=== PATIENT | female | born 1975 | race Caucasian/White ===

== ENCOUNTER 2016-06-14 15:50 | Emergency (ER) | payer BC, OTHER ==
[2016-06-14 15:56] VITALS: TEMP 98.8; BMI 25.5
[2016-06-14] MEDS ORDERED: METOCLOPRAMIDE 10 MG TAB PO ONE (15:59)
[2016-06-14] MEDS ORDERED: DIPHENHYDRAMINE 25 MG CAP PO ONE (15:59)
[2016-06-14] MEDS ORDERED: DEXAMETHASONE PF 10 MG/1 ML VIAL IM ONE (15:59)
[2016-06-14] MEDS ORDERED: KETOROLAC TROMETHAMINE 60 MG/2 ML SDV IM ONE (16:00)
--- NOTE | 2016-06-14 16:05 | EDPRACDOC ---
- General Information Chief Complaint: Headache Stated Complaint: MIGRAINE BUTLER Time Seen by Provider: 06/14/16 15:59 Information Source: Patient Mode Of Arrival: Car Home Medications: Home Medications Nadolol 40 mg PO DAILY 06/14/16 Ondansetron [Zofran Odt] 4 mg PO Q6H PRN #20 tab.rapdis 06/14/16 Oxycodone HCl/Acetaminophen [Percocet 5-325 mg Tablet] 1 tab PO Q4-6H PRN #20 tab 06/14/16 Allergies/Adverse Reactions: Allergies Allergy/AdvReac Type Severity Reaction Status Date / Time No Known Allergies Allergy Verified 06/14/16 15:56 - History of Present Illness Onset: tuesday morning HPI: PT PRESENTS WITH PERSISTENT MIGRAINE THAT BEGAN TUESDAY. STATES SHE HAS TAKEN HER MEDICATIONS PRESCRIBED WITHOUT HELP. WENT TO URGENT CARE YESTERDAY AND WAS GIVEN TORADOL AND PHENERGAN AND HAS RELIEF OF THE NAUSEA. STATES THIS IS CONSISTENT WITH HER NORMAL MIGRAINES. Location: Reports: Generalized Pain Quality: Reports: Moderate, Like Previous Headaches Modifying Factors: improves with: Medication, Immobilization Prior work up: Reports: CT Relevant History of: Reports: Known Headache disorder Associated Signs and Symptoms: Denies: Fever/Chills, Stiff Neck ED Past Medical History - History Reviewed Yes Nurses notes reviewed and agree except as marked - Patient Medical History Psychological History: Denies: Depression Systemic History: Reports: Cancer Surgical History: Reports: Tonsillectomy/Adnoidectomy. Denies: Hysterectomy - Social Medical History Smoking Status: Heavy tobacco smoker (5 or more cigarettes/day or daily pipe/ cigar) EDM Review of Systems - Review of Systems ROS Negative Except as Marked: Yes All systems reviewed and were negative except as marked - Physical Exam Constitutional: Alert Oriented to: Time, Person, Place Last recorded Vital Signs: Last Vital Signs Temp 98.8 F 06/14/16 15:53 Pulse 82 06/14/16 15:53 Resp 20 06/14/16 15:53 BP 123/67 06/14/16 15:53 Pulse Ox 97 06/14/16 15:53 Oxygen Pulse Oxygen Saturation 97 O2 Device Room Air Oxygen Flow Rate Fraction of Inspired Oxygen ( FIO2) - HEENT Head: Normal ( normocephalic) Eye Exam: Normal (PERRL, EOMI, Sclera white) Oropharynx: Normal (Pharynx:Moist without exudate,Gums-no swelling) Tympanic Membrane: Normal Nose: No Symptoms Reported (septum midline) Neck: Normal (FROM, trachea at midline) - Respiratory/Cardiovascular Respiratory: Normal - CTA (BBS clear to auscultation without adventitious sounds ) Cardiovascular: Normal (RRR without murmur, gallop or rub) - GI Auscultation: Normal (NABS) Palpation: Normal (Soft,No rebound or guarding, non distended) Tenderness: Non tender Manuel's Sign: Negative Rectal Exam: Deferred - Musculoskeletal Back: Normal (Non-Tender) Extremities: Normal (Normal tone, Pulses 2+ No cyanosis or edema, FROM) - Integumentary Skin: Normal, Warm, Dry Lymphatics: Normal (no adenopathy) - Neurologic Memory Impaired: Normal Motor Function: Normal (Normal tone, Pulses 2+ No cyanosis or edema, FROM) Cranial Nerve: Normal (CN II-X11 intact sensation, strength 5/5) Cerebellar: Normal Mood Description: Normal Perception: Normal - Differential Diagnosis Migraine - Re-evaluation Re-evaluation 1 Re-evaluation Time: 16:48 (PT CONTINUES TO HAVE PAIN. WILL RE-MEDICATE AND REASSESS. ) Re-evaluation 2 Re-evaluation Time: 17:54 (PT FEELING MUCH BETTER AT THIS TIME) Decision Time to Discharge: 17:54 - Departure Disposition: Home Condition: Stable Final Diagnosis: Migraine Instructions: Migraine Headache (ED) Education/Counseling Given To: Patient Education/Counseling Given Regarding: Diagnosis, Treatment, Prognosis, Follow Up Referrals: Jude Henry MD [Primary Care Provider] - One Week Prescriptions: Ondansetron [Zofran Odt] 4 mg PO Q6H PRN #20 tab.rapdis PRN Reason: Nausea/Vomiting Oxycodone HCl/Acetaminophen [Percocet 5-325 mg Tablet] 1 tab PO Q4-6H PRN #20 tab PRN Reason: Pain Additional Instructions: FOLLOW UP WITH PCP NEXT WEEK. RETURN TO THE ED FOR WORSENING SYMPTOMS OR CONCERNS
[2016-06-14] MEDS ORDERED: HYDROmorphone 1 MG INJECTION IM ONE (16:43)
[2016-06-14 17:58] VITALS: BP 111/55; PULSE 64
== END 2016-06-14 18:03 | disposition home or self-care (01) ==
LOC: ED 15:50 → EDMC 18:03
DX: G43.909 Migraine, unspecified, not intractable, without status migrainosus (principal)
CPT/HCPCS: 96372; 99283; J1100; J1170; J1885; J3490